=== PATIENT | male | born 1955 | race African-American/Black ===

== ENCOUNTER 2019-12-01 19:25 | Inpatient (IN) ==
[2019-12-01 20:18] LABS: BASO# 0.08 X1000 (0.0-0.2); BASO% 1.1 % (0.0-0.8); EOS# 0.06 X1000 (0.0-0.7); EOS% 0.8 % (0.0-10.0); HEMATOCRIT 25.6 % (42.0-52.0); HEMOGLOBIN 6.9 g/dL (14.0-18.0); IMM GRAN# 0.01 X1000 (0.0-0.04); IMM GRAN% 0.1 % (0.0-0.5); LYMPH# 0.77 X1000 (1.2-3.4); LYMPH% 10.3 % (20.5-51.1); MCH 16.4 PG (27-31); MONO# 0.64 X1000 (0.11-0.59); MONO% 8.5 % (1.7-9.3); NEUT# 5.95 X1000 (1.4-6.5); NEUT% 79.2 % (42.2-75.2); PLT 175 X1000 (130-400); RDW 22.5 % (11.5-14.5); WBC 7.51 X1000 (4.8-10.8)
[2019-12-01 20:29] LABS: INR 1.19; PROTIME 15.7 Seconds (11.0-16.0)
[2019-12-01 20:35] LABS: AGAP 12; ALBUMIN 3.2 g/dL (3.5-5.0); ALKALINE PHOSPHATASE 85 U/L (32-122); BUN 18 mg/dL (8-22); CALCIUM 8.2 mg/dL (8.8-10.2); CHLORIDE 109 mmol/L (98-107); CK PROFILE 87 U/L (24-204); COSMO 284; CREATININE 0.9 mg/dL (0.7-1.2); ESTIMATED GFR > 60; GLUCOSE 112 mg/dL (70-104); GOT 49 U/L (10-34); GPT 22 U/L (10-44); POTASSIUM 4.5 mmol/L (3.5-5.1); SODIUM 141 mmol/L (136-145); TCO2 20 mmol/L (25-35); TOTAL PROTEIN 5.7 g/dL (6.3-8.3)
--- NOTE | 2019-12-01 21:04 | Diag Imaging Result Doc PS360 ---
EXAM: CHEST-2 VIEWS 12/01/2019 HISTORY: sob TECHNIQUE: Two views the chest COMMENT: There are bilateral pleural effusions more so on the right than the left. There are patchy basilar opacities most likely due to atelectasis but the possibility of pneumonia particularly in the right lower and middle lobes cannot be excluded. The heart size is also enlarged. There are no previous studies. IMPRESSION: Cardiomegaly. Pleural effusions. Atelectasis versus pneumonia particularly in the right base. Electronically signed by Rc Tony 12/01/2019 9:02 PM
[2019-12-01] MEDS ORDERED: LASIX IV ONE (21:21)
[2019-12-01] MEDS: ZOSYN 3.375 GM in NS 50 ML IV SCH (21:43)
--- NOTE | 2019-12-01 21:43 | PROVIDER DOCUMENTATION ---
This chart was entered by She Lopez Scribe, acting as scribe for Duncan Isbell CRNP. HPI-Respiratory General - General Chief Complaint: Shortness of Breath Stated Complaint: SOB Time Seen by Provider: 12/01/19 19:53 - History of Present Illness-Resp Nature of Presenting Problem: 64 yom c/o increased sob over last week. in 2018, was dx w/chf and pulmonary HTN. est EF was 55-60% at that time. per Dr. Mcarthur, pt was to come to er to be admitted for poss CHF exacerbation. pt also c/o increased edema in left arm, bilat LE and scrotum. 3L NC at home. pt is speaking well. pt reports vascular studies done on L arm and were negative. no signs of DVT were found. Onset/Duration: reports: other Timing: reports: still present Review of Systems - Adult - REVIEW OF SYSTEMS - ADULT Constitutional: reports: no symptoms reported. denies: fever, fatique, night sweats Eyes: reports: no symptoms reported Ears, Nose, Mouth & Throat: reports: no symptoms reported Cardiovascular: reports: see HPI, edema, other (HTN). denies: heart murmur, irregular heart rate, orthopnea Respiratory: reports: see HPI, dyspnea on exertion, shortness of breath. denies: cough, hemoptysis, pleurisy Gastrointestinal: reports: no symptoms reported Genitourinary: reports: no symptoms reported Musculoskeletal: reports: see HPI, muscle weakness (generalized). denies: bone pain, back pain, muscle aches Integumentary: reports: no symptoms reported Neurological: reports: no symptoms reported Psychiatric: reports: no symptoms reported Endocrine: reports: no symptoms reported Hematologic/Lymphatic: reports: no symptoms reported Allergic/Immunologic: reports: no symptoms reported All Other Systems: Reviewed and Negative Past History - Adult - PAST MEDICAL HISTORY-ADULT Review of Records: reports: Nursing Assessment Review, Medications Reviewed, Social history reviewed & non-contributory. Major Childhood Illnesses: reports: denies history Cardiovascular: reports: CHF, HTN (pulmonary) Respiratory: reports: lung disease Gastrointestinal: reports: denies history Obstetrical/Gynecological: reports: denies history Genitourinary: reports: denies history Musculoskeletal: reports: denies history Neurological: reports: denies history Endocrine/Immune: reports: denies history Other Conditions: reports: denies history - PRIOR SURGERIES/PROCEDURES Surgical/Procedure History: reports: other - IMMUNIZATION STATUS Childhood Immunizations: See Nurse Assessment Flu Vaccine: See Nurse Assessment - FAMILY HISTORY Family History: reviewed, not pertinent Physical Exam-General - PHYSICAL EXAM-ADULT Initial Vital Signs Reviewed: Yes - CONSTITUTIONAL General Appearance: appears well, alert, no apparent distress. negative: lethargic, slow to respond, obtunded - EYES Eyes: PERRL/EOMI - HEAD, EARS, NOSE, MOUTH & THROAT HENMT: normocephalic/atraumatic, moist mucous membranes, normal ENT inspection - NECK Neck: non-tender, full range of motion, supple, normal inspection - RESPIRATORY Respiratory: chest non-tender, lungs clear, no pleuratic chest pain, no accessory muscle use, decreased breath sounds. negative: no respiratory distress (dyspnea on exertion), respiratory distress, accessory muscle use, wheezing - CARDIOVASCULAR Cardiovascular: normal peripheral pulses, regular rate, rhythm, no gallop, no JVD, no murmur, other (generalized edema noted with more in the LUE. (patient states has been evaluated for DVT and was negative.)). negative: no edema, friction rub, irregularly irregular, PMI displaced laterally - GASTROINTESTINAL (ABDOMEN) Abdominal Exam: normal bowel sounds, non tender, soft - MUSCULOSKELETAL Back Exam: normal inspection Extremity: normal range of motion, non-tender, normal inspection Peripheral Pulses: dorsalis-pedis (R): 2+, dorsalis-pedis (L): 2+ - SKIN Integumentary: normal color, warm/dry. 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, grossly normal, no motor/sensory deficits - PSYCHIATRIC Psych/Mental Status: normal mood/affect, normal thought content, normal thought process, oriented x 3 - HEART Score HEART Score: History: Slightly Suspicious HEART Score: ECG: Normal HEART Score: Age: 45-65 Years HEART Score: Risk Factors for Atherosclerotic Disease: > or = 3 Risk Factors or History of Atherosclerotic Disease HEART Score: Troponin: < or = Normal Limit Total HEART Score:: 3 Progress - PLAN OF CARE/RESULTS Progress/Plan/Lab Results: Vital Signs - 8 hr 12/01/19 19:33 12/01/19 21:15 Temperature 97.6 F Pulse Rate 73 69 Respiratory Rate 22 18 Blood Pressure 176/105 180/108 O2 Sat by Pulse Oximetry 100 100 Laboratory Results - last 24 hr 12/01/19 12/01/19 12/01/19 20:04 20:04 20:04 WBC RBC Hgb Hct MCV MCH MCHC RDW Std Deviation Plt Count MPV Immature Gran % (Auto) Neut % (Auto) Lymph % (Auto) Dundy % (Auto) Eos % (Auto) Baso % (Auto) Immature Gran # (Auto) Neut # (Auto) Lymph # (Auto) Dundy # (Auto) Eos # (Auto) Baso # (Auto) Segmented Neutrophils PT INR PTT (Actin FS) Sodium 141 Potassium 4.5 Chloride 109 H Carbon Dioxide 20 L Anion Gap 12 BUN 18 Creatinine 0.9 Estimated GFR/1.73 m2 > 60 BUN/Creatinine Ratio 20 Glucose 112 H Calculated Osmolality 284 Calcium 8.2 L Total Bilirubin 0.60 AST 49 H ALT 22 Alkaline Phosphatase 85 Creatine Kinase 87 Troponin T High Sens [id number]-Cevshxitlqn Pept > 77662 H Total Protein 5.7 L Albumin 3.2 L Globulin 3.0 Albumin/Globulin Ratio 1.0 Plasma Lactate 1.6 12/01/19 12/01/19 12/01/19 20:04 20:04 20:04 WBC 7.51 RBC 4.20 L Hgb 6.9 L Hct 25.6 L MCV 61.0 L MCH 16.4 L MCHC 27.0 L RDW Std Deviation 22.5 H Plt Count 175 MPV Not Reportable Immature Gran % (Auto) 0.1 Neut % (Auto) 79.2 H Lymph % (Auto) 10.3 L Dundy % (Auto) 8.5 Eos % (Auto) 0.8 Baso % (Auto) 1.1 H Immature Gran # (Auto) 0.01 Neut # (Auto) 5.95 Lymph # (Auto) 0.77 L Dundy # (Auto) 0.64 H Eos # (Auto) 0.06 Baso # (Auto) 0.08 Segmented Neutrophils Not Reportable PT 15.7 INR 1.19 PTT (Actin FS) 25.0 Sodium Potassium Chloride Carbon Dioxide Anion Gap BUN Creatinine Estimated GFR/1.73 m2 BUN/Creatinine Ratio Glucose Calculated Osmolality Calcium Total Bilirubin AST ALT Alkaline Phosphatase Creatine Kinase Troponin T High Sens 48 H Zix-I-Yevudgkffag Pept Total Protein Albumin Globulin Albumin/Globulin Ratio Plasma Lactate Orders Category Date Time Status Admit - [facility] Routine AdmDCTranf 12/01/19 21:18 Active Activity - Bed Rest with BRP ORDERED Care 12/01/19 21:18 Active Cardiac Monitoring DIRECTED Care 12/01/19 19:54 Active NEWS Score 2-4:Order NEWS Lactate Series NOW Care 12/01/19 19:37 Active Oxygen Therapy- ED Nursing DIRECTED Care 12/01/19 19:54 Active Saline Loc NOW Care 12/01/19 19:54 Active Vital Signs Order ROUTINE Care 12/01/19 21:18 Active Z-Document. for Tele Applied ORDERED Care 12/01/19 21:19 Active Heart Healthy Diet Diet 12/01/19 21:20 Active CHEST-2 VIEWS [RAD] Stat Exams 12/01/19 19:54 Completed CBC WITH ELECTRONIC DIFF [HEME] Stat Lab 12/01/19 20:04 Completed CK PROFILE [SP CHEM] Stat Lab 12/01/19 20:04 Completed COMPREHENSIVE METABOLIC PANEL [CHEM] Stat Lab 12/01/19 20:04 Completed LACTATE, PLASMA [CHEM] Lab 12/01/19 22:45 Uncollected LACTATE, PLASMA [CHEM] Lab 12/02/19 01:45 Uncollected LACTATE, PLASMA [CHEM] Q3H Lab 12/01/19 20:04 Completed PRO B-NATRIURETIC PEPTIDE Stat Lab 12/01/19 20:04 Completed PROTIME WITH INR [COAG] Stat Lab 12/01/19 20:04 Completed PTT [COAG] Stat Lab 12/01/19 20:04 Completed TROPONIN T HIGH SENSITIVITY Stat Lab 12/01/19 20:04 Completed Albuterol 2.5MG/Ipratrop 0.5MG [Duoneb (A & A)] Med 12/01/19 23:30 Active 3 ml INH RTQ4H Azithromycin 500 mg/Ns [Zithromax 500 mg/Ns] Med 12/01/19 22:00 Active 500 mg in 250 ml IV Q24H Furosemide [Lasix] Med 12/01/19 21:21 Discontinued 40 mg IV NOW ONE Piperacillin/Tazobactam [Zosyn] 3.375 gm Med 12/01/19 21:30 Active 0.9% Sodium Chloride Inj [Ns] 50 ml IV Q6H Aerosol Treatments Routine Oth 12/01/19 21:20 Active Aerosol Treatments Stat Oth 12/01/19 21:20 Active CP/SOB/Palp >45 yrs of Age Stat Oth 12/01/19 19:54 Ordered Oxygen Device Routine Oth 12/01/19 21:20 Active Telemetry [OM.EQ] Routine Oth 12/01/19 21:18 Active EKG [EKG] Stat Ther 12/01/19 19:54 Ordered Transfer/Admit Order [TRANSFER] Routine Transfer 12/01/19 21:21 Ordered patient to be admitted to the hospital for CHF exacerbation and RLL pneumonia Result Diagrams: 12/01/19 20:04 12/01/19 20:04 - EKG 1 Time of EKG reading by physician:: 20:04 EKG Read and Signed by:: Cornelius Llamas EKG Interpretation (*Must complete 3 of following elements*): Abnormal Rate: 67 Rhythm: NSR [place]: normal QRS: normal [place] Interval: normal ST Wave: non-specific ST changes (ST & T wave abnormalty, consider inferior ischemia) Comments: possible anterior infarct, age undetermined - XRAY 1 XRAY Study: Chest Impression: See EMR Report ( COMMENT: There are bilateral pleural effusions more so on the right than the left. There are patchy basilar opacities most likely due to atelectasis but the possibility of pneumonia particularly in the right lower and middle lobes cannot be excluded. The heart size is also enlarged. There are no previous studies. IMPRESSION: Cardiomegaly. Pleural effusions. Atelectasis versus pneumonia particularly in the right base.) - CONSULTS/PCP/HOSPITALIST Notification #1 *Consult/PCP/Hospitalist*: Dr Finnegan Time Discussed: 21:26 Reason/Comments: SOB, CHF exacerbation, Pneumonia Consult Disposition: Admit Departure - Departure Date of Disposition Decision: 12/01/19 Time of Disposition Decision: 21:43 DIAGNOSIS: Acute exacerbation of CHF (congestive heart failure) Qualifiers: Heart failure type: unspecified Qualified Code(s): I50.9 - Heart failure, unspecified Dyspnea Qualifiers: Dyspnea type: unspecified Qualified Code(s): R06.00 - Dyspnea, unspecified RLL pneumonia Qualifiers: Pneumonia type: due to unspecified organism Qualified Code(s): J18.1 - Lobar pneumonia, unspecified organism Disposition: ADMITTED INPATIENT 09 Certified Medical Emergency: Emergent Condition: Stable Additional Instructions: ED Follow Up Instructions: You have been treated by a care provider in the Emergency Department. These instructions are being provided to you so you can have an understanding of how to care for yourself upon discharge. Upon discharge from the Emergency Department, you are responsible for making arrangements for follow-up care by a physician of your choice. Take all prescribed medications as directed. Return to the Emergency Department immediately for any new or worsening symptoms. You may call the Physician Referral phone number at [phone] to obtain a list of Physicians who are taking new patients. Referrals and Follow-Ups: Bird Douglas MD [Primary Care Provider] - - Critical Care Note This patient required my direct & personal management of CC.: No Attestation - Physician/ JOSELYN Attestation Patient care was provided by Advanced Practice Provider:: Yes Advanced Practice Provider:: Duncan Isbell Advanced Practice Provider documentation review:: The Mid-level provider documentation, treatment plan and medical decision making was reviewed by the physician who agrees with all treatment and medical decision making by the MLP. The physician spent face to face time with patient:: No Advanced Practice Provider documentation review:: Supervising physician onsite and consulted in the evaluation and care of this patient. The physician did not have a face to face encounter with the patient. This chart was documented by the indicated scribe, (She Lopez Scribe) and accurately reflects the services I performed and decisions made by me, Duncan Isbell CRNP, as attested by the provider's signature.
[2019-12-01] MEDS ORDERED: LOPRESSOR IV ONE (22:37)
[2019-12-01] MEDS ORDERED: CATAPRES PO ONE (22:37)
[2019-12-01] MEDS: ZITHROMAX 500 MG/NS 500 MG/250 ML IVPB IV SCH (22:53)
[2019-12-01] MEDS: DUONEB (A & A) INH SCH (23:19)
--- NOTE | 2019-12-02 01:01 | EKG Report ---
Test Performed on : 12/01/2019 8:03:12 PM Test Reason : sob Blood Pressure : / mmHG Vent. Rate : 067 BPM Atrial Rate : 067 BPM P-R Int : 142 ms QRS Dur : 074 ms QT Int : 392 ms P-R-T Axes : 013 048 -28 degrees QTc Int : 414 ms Normal sinus rhythm. Possible Anterior infarct , age undetermined ST & T wave abnormality, consider inferior ischemia Abnormal ECG No previous ECGs available Unconfirmed Result
[2019-12-02] MEDS: DUONEB (A & A) INH SCH ×5 (03:14→19:45)
[2019-12-02 04:09] LABS: AGAP 11; ALBUMIN 3.2 g/dL (3.5-5.0); ALKALINE PHOSPHATASE 85 U/L (32-122); BUN 18 mg/dL (8-22); CALCIUM 8.1 mg/dL (8.8-10.2); CHLORIDE 109 mmol/L (98-107); COSMO 288; CREATININE 0.9 mg/dL (0.7-1.2); ESTIMATED GFR > 60; GLUCOSE 157 mg/dL (70-104); GOT 23 U/L (10-34); GPT 19 U/L (10-44); POTASSIUM 3.6 mmol/L (3.5-5.1); SODIUM 142 mmol/L (136-145); TCO2 23 mmol/L (25-35); TOTAL PROTEIN 5.8 g/dL (6.3-8.3)
[2019-12-02 04:17] LABS: BASO# 0.09 X1000 (0.0-0.2); BASO% 1.4 % (0.0-0.8); EOS# 0.06 X1000 (0.0-0.7); HEMATOCRIT 24.8 % (42.0-52.0); HEMOGLOBIN 6.5 g/dL (14.0-18.0); IMM GRAN# 0.01 X1000 (0.0-0.04); IMM GRAN% 0.2 % (0.0-0.5); LYMPH% 9.6 % (20.5-51.1); MCH 16.2 PG (27-31); MCHC 26.2 g/dL (33-37); MCV 61.7 FL (81-99); MONO# 0.73 X1000 (0.11-0.59); MONO% 11.7 % (1.7-9.3); NEUT# 4.73 X1000 (1.4-6.5); NEUT% 76.1 % (42.2-75.2); PLT 183 X1000 (130-400); RBC 4.02 XMIL (4.7-6.1); RDW 22.5 % (11.5-14.5); WBC 6.22 X1000 (4.8-10.8)
[2019-12-02] MEDS: ZOSYN 3.375 GM in NS 50 ML IV SCH ×3 (05:47→23:05)
[2019-12-02] MEDS ORDERED: NORCO-5 PO PRN (07:58)
[2019-12-02] MEDS ORDERED: LONITEN PO PRN (07:58)
[2019-12-02] MEDS ORDERED: NS 500 ML IV ONE ×2 (07:58→14:50)
--- NOTE | 2019-12-02 08:03 | Diag Imaging Result Doc PS360 ---
EXAM: CHEST-2 VIEWS 12/02/2019 HISTORY: SOB TECHNIQUE: PA and lateral chest COMMENT: There is blunting of the left costophrenic angle and there is a large pleural effusion on the right. There is compressive atelectasis versus pneumonia in the right middle and lower lobes. There is some atelectasis versus fibrosis in the lingula which has not changed since 12/01/2019. There are no earlier radiographs available for comparison. IMPRESSION: Cardiomegaly and bilateral pleural effusions worse on the right than the left. Atelectasis versus pneumonia. Electronically signed by Rc Tony 12/02/2019 8:00 AM
[2019-12-02] MEDS: ULTRAM PO SCH (10:04)
[2019-12-02] MEDS: LASIX IV SCH ×2 (10:06→23:06)
[2019-12-02] MEDS ORDERED: LASIX PO PRN (18:49)
[2019-12-02] MEDS: CATAPRES PO SCH ×2 (19:22→21:21)
--- NOTE | 2019-12-02 20:41 | ECHO REPORT ---
ORDER DATE: 12/02/2019 MEASUREMENTS: Septal thickness 1.4, left ventricular internal end-diastole 5.5, posterior wall thickness 1.4, aortic root 3.5, left atrium 5.1. SUMMARY: 1. Adequate quality study. 2. Aortic valve is trileaflet and opens normally on 2-dimensional images. Peak gradient across aortic valve by Doppler is less than 10 mmHg. There is trace aortic regurgitation. Mitral, tricuspid, and pulmonic valves are without evidence of structural abnormality with very mild mitral regurgitation, mild tricuspid regurgitation, and moderate pulmonic insufficiency. The estimated systolic PA pressure by Doppler is 55 to 60 mmHg suggesting moderate pulmonary hypertension. Aortic root is normal in size. 3. Upper normal left ventricular chamber size. Mild to moderate concentric left hypertrophy is demonstrated. The estimated left ventricular ejection fraction is approximately 25% in the setting of global hypokinesis. Doppler suggests grade 1 left ventricular diastolic function. Left atrium is moderately enlarged. The right atrium is moderately enlarged. The right ventricle is mildly enlarged with mildly reduced right ventricular systolic function. 4. No pericardial effusion. 5. Bilateral pleural effusions evident. 6. Appearance of inferior vena cava suggests elevated central venous pressure. cc: MD Lennox Jaramillo MD
[2019-12-02] MEDS ORDERED: NORCO-7.5 PO PRN (22:50)
--- NOTE | 2019-12-02 22:51 | HISTORY AND PHYSICAL ---
ADDENDUM: The patient is a 64-year-old male who is on disability. States he has a history of pulmonary hypertension with his recent EF being 55 to 60 percent. Currently, he is anemic with an H and H at 6 and 25. We are going to admit to the hospital, check ultrasound of his heart, type and cross to transfuse. Continue Lasix. Restart his home blood pressure medicine and will follow. cc: Lennox Finnegan MD
[2019-12-02] MEDS: ZITHROMAX 500 MG/NS 500 MG/250 ML IVPB IV SCH (23:08)
[2019-12-03] MEDS: ZOSYN 3.375 GM in NS 50 ML IV SCH ×5 (00:07→23:07)
[2019-12-03] MEDS: DUONEB (A & A) INH SCH ×7 (00:09→23:12)
[2019-12-03] MEDS: TENORMIN PO SCH ×2 (00:35→08:02)
[2019-12-03] MEDS: FERROUS SULFATE PO SCH ×2 (00:35→08:02)
[2019-12-03 07:28] LABS: HEMATOCRIT 30.5 % (42.0-52.0); HEMOGLOBIN 8.5 g/dL (14.0-18.0); MCH 17.3 PG (27-31); MCHC 27.9 g/dL (33-37); MCV 62.2 FL (81-99); PLT 180 X1000 (130-400); RDW 26.1 % (11.5-14.5); WBC 11.86 X1000 (4.8-10.8)
[2019-12-03 07:32] LABS: AGAP 14; ALBUMIN 3.4 g/dL (3.5-5.0); ALKALINE PHOSPHATASE 82 U/L (32-122); BUN 18 mg/dL (8-22); CALCIUM 8.4 mg/dL (8.8-10.2); CHLORIDE 104 mmol/L (98-107); COSMO 291; CREATININE 0.8 mg/dL (0.7-1.2); ESTIMATED GFR > 60; GLUCOSE 98 mg/dL (70-104); GOT 31 U/L (10-34); GPT 22 U/L (10-44); MAGNESIUM 1.6 mg/dL (1.5-2.7); POTASSIUM 3.2 mmol/L (3.5-5.1); SODIUM 145 mmol/L (136-145); TCO2 27 mmol/L (25-35); TOTAL PROTEIN 6.3 g/dL (6.3-8.3)
[2019-12-03] MEDS: LASIX IV SCH ×2 (08:01→23:07)
[2019-12-03] MEDS: ULTRAM PO SCH (08:02)
[2019-12-03] MEDS: CATAPRES PO SCH (08:02)
[2019-12-03] MEDS ORDERED: HYDROCHLOROTHIAZIDE PO SCH (09:00)
--- NOTE | 2019-12-03 09:01 | Diag Imaging Result Doc PS360 ---
EXAM: CHEST-2 VIEWS - 12/03/2019 HISTORY: hypoxia TECHNIQUE: Chest two views COMPARISON: 12/02/2019 FINDINGS: There is a medium right pleural effusion which appears to have decreased mildly. Underlying airspace disease on the right is not excluded. There is stable small right pleural effusion. There are no other interval changes identified. There is no evidence of pneumothorax. IMPRESSION: Medium right pleural effusion, which appears to have decreased mildly. Stable small left pleural effusion. Electronically signed by Ricco Biswas 12/03/2019 8:59 AM
[2019-12-03] MEDS: PERCOCET-5 PO PRN ×2 (09:14→17:09)
[2019-12-03] MEDS: COREG PO SCH ×2 (13:43→23:06)
[2019-12-03] MEDS ORDERED: CATAPRES PO SCH (21:00)
[2019-12-03] MEDS ORDERED: PRINIVIL PO SCH (21:00)
--- NOTE | 2019-12-03 22:09 | PROGRESS NOTE ---
DATE: 12/03/2019 SUBJECTIVE: The patient himself has no new complaints, although states he would like to take Viagra every day. Denies any shortness of breath, chest pain, palpitations currently. PHYSICAL EXAMINATION: Vital signs: Temperature 97.8, pulse 84, respiratory rate 18, BP 157/91. General: Patient is awake, pleasant sitting up on side of the bed with his feet hanging over the edge. Still has marked edema in his lower extremities, nonpitting. HEENT: Normocephalic. Neck: Supple. Cardiovascular: Regular rate. Chest: Decreased but equal. Abdomen: Soft. Extremities: Moves all extremities with significant edema bilaterally. ASSESSMENT: 1. Moderate pulmonary hypertension. 2. Congestive heart failure with an EF of 25%. PLAN: We are going to continue patient in the hospital. We have consulted with Cardiology we are going to add ARB as patient notes that KAREN inhibitors upset his stomach. We are going to add Coreg and hopefully Aldactone to his blood pressures. We will control it. We will follow his anemia. Further orders as needed. cc: Lennox Finnegan MD
[2019-12-03] MEDS: COZAAR PO SCH (23:06)
[2019-12-03] MEDS: ZITHROMAX 500 MG/NS 500 MG/250 ML IVPB IV SCH (23:31)
[2019-12-04] MEDS: PERCOCET-5 PO PRN ×2 (01:49→09:56)
[2019-12-04] MEDS: DUONEB (A & A) INH SCH ×3 (03:05→12:22)
[2019-12-04] MEDS: ZOSYN 3.375 GM in NS 50 ML IV SCH (04:55)
[2019-12-04 05:19] VITALS: BP 149/93
[2019-12-04 08:16] LABS: HEMATOCRIT 31.9 % (42.0-52.0); RBC 5.12 XMIL (4.7-6.1); WBC 12.98 X1000 (4.8-10.8)
[2019-12-04 08:17] LABS: AGAP 11; ALBUMIN 3.7 g/dL (3.5-5.0); ALKALINE PHOSPHATASE 81 U/L (32-122); BUN 15 mg/dL (8-22); CALCIUM 8.9 mg/dL (8.8-10.2); CHLORIDE 99 mmol/L (98-107); COSMO 286; CREATININE 0.9 mg/dL (0.7-1.2); ESTIMATED GFR > 60; GLUCOSE 96 mg/dL (70-104); GOT 33 U/L (10-34); GPT 25 U/L (10-44); MAGNESIUM 1.5 mg/dL (1.5-2.7); MCH 17.6 PG (27-31); MCHC 28.2 g/dL (33-37); MCV 62.3 FL (81-99); PLT 208 X1000 (130-400); POTASSIUM 3.1 mmol/L (3.5-5.1); RDW 26.7 % (11.5-14.5); SODIUM 143 mmol/L (136-145); TCO2 33 mmol/L (25-35)
[2019-12-04] MEDS ORDERED: KLOR-CON PO ONE (08:39)
[2019-12-04] MEDS ORDERED: KEFLEX PO SCH (09:00)
[2019-12-04] MEDS ORDERED: COREG PO SCH (09:00)
[2019-12-04] MEDS ORDERED: ALDACTONE PO SCH (09:00)
[2019-12-04] MEDS: ULTRAM PO SCH (09:55)
[2019-12-04] MEDS: FERROUS SULFATE PO SCH (09:58)
[2019-12-04] MEDS: LASIX PO SCH ×2 (09:58→10:02)
[2019-12-04] MEDS: COZAAR PO SCH (09:58)
--- NOTE | 2019-12-04 13:19 | HISTORY AND PHYSICAL ---
This is a delayed dictation for 12/02/2019. The patient was actually seen and evaluated at this time. CHIEF COMPLAINT: Shortness of breath and body edema. HISTORY OF PRESENT ILLNESS: This is a 64-year-old gentleman with a history of hypertension, congestive heart failure, BPH, pulmonary hypertension, who presents to the emergency room complaining of increasing shortness of breath, dyspnea on exertion and increasing lower extremity edema that over the past 2 to 3 weeks has increased despite his home medications and O2 at 3 L at home. He voices compliance with his medication and diet regimen. He denied any fevers, any chills, a productive cough, any palpitations, any PND or orthopnea. PAST MEDICAL HISTORY: 1. Hypertension. 2. Pulmonary hypertension. 3. Congestive heart failure. 4. Ulcerative colitis. PAST SURGICAL HISTORY: Hemicolectomy, hernia repair, appendectomy. SOCIAL HISTORY: He denies any tobacco use, vaping, illicit drug use. He does drink beers occasionally. He lives with his mother. He is disabled. ALLERGIES: No known drug allergies. HOME MEDICATIONS: 1. Atenolol 50 mg p.o. daily. 2. Clonidine 0.2 mg p.o. b.i.d. 3. Furosemide 20 mg p.o. daily p.r.n. 4. Tramadol 50 mg p.o. daily. FAMILY HISTORY: Positive for hypertension and coronary artery disease. REVIEW OF SYSTEMS: Discussed with patient with pertinent positives stated in the HPI. He denied any syncope or dizziness, any chest pain or palpitations, any fevers or chills, a productive cough, any PND, orthopnea, any nausea, vomiting, diarrhea, constipation, black or bloody vomitus or stools, hematuria, dysuria, frequency, urgency. PHYSICAL EXAMINATION: GENERAL: This is a 64-year-old gentleman who is sitting up on the bed in no distress. VITAL SIGNS: Blood pressure is 139/79, with a heart rate of 71, respirations are 20, temperature is 97.8 degrees oral, with room air saturations 100% on 3 L nasal cannula. EYES: Pupils are equal, round, react to light. EOMs are intact. Sclerae are anicteric. HEENT: Head is normocephalic, atraumatic. Mucous membranes are moist. NECK: Supple with trachea midline. CARDIOVASCULAR: Regular rate and rhythm. S1 and S2 appreciated. No murmur. He has edema to all 4 extremities as well as scrotal edema. He denies any calf tenderness with peripheral pulses palpable x4 extremities. No murmur noted. PULMONARY: Breath sounds are diminished throughout with expiratory wheezes. He has a few bibasilar crackles on posterior. CHEST: Rises and falls symmetric with respiration. He does have some slight increased work of breathing noted. GASTROINTESTINAL: Abdomen is soft, nontender, nondistended. Bowel sounds in all 4 quadrants. GENITOURINARY: He is noted to have penile and scrotal edema. SKIN: Warm and dry. NEUROLOGIC: He is alert and oriented x3. LABORATORY DATA: WBC is 7.5 with hemoglobin 6.9, hematocrit 25.6, and platelets of 175,000. Sodium 141, potassium 4.5, BUN 18, creatinine 0.9 with a glucose of 112. ProBNP is greater than 35,000. Chest x-ray revealed cardiomegaly with pleural effusions, atelectasis versus pneumonia in the right. On 12/02/2019 chest x-ray revealed cardiomegaly with bilateral pleural effusions, right greater than left atelectasis versus pneumonia. On 12/03/2019 chest x-ray revealed a medium right pleural effusion which appears to have decreased mildly with a stable small left pleural effusion. Echocardiogram revealed mild to moderate concentric left hypertrophy with estimated left ventricular ejection fraction 25% in the setting of global hypokinesis and grade 1 ventricular diastolic dysfunction. Estimated systolic PA pressure is 55 to 60, suggesting moderate pulmonary hypertension. ASSESSMENT; 1. Moderate pulmonary hypertension. 2. Congestive heart failure with ejection fraction of 25%. 3. Right pleural effusion. 4. Past benign prostatic hypertrophy (BPH). 5. Chronic anemia secondary to ulcerative colitis. PLAN: Continue diuresis IV Lasix Strict I&O ECHO Identify home medications and continue as appropriate. CXR in am Discuss with cardiology. Mr Pedroza repeatedly requests Viagra or Cialis for pulm HTN during my interview. I did discuss with him that is a decision to be made by cardiology. He voiced understanding Dictated by LINH Bob for Lennox Finnegan MD cc: LINH Bob MD Moses Awoniyi, MD MTDD
--- NOTE | 2019-12-04 22:12 | DISCHARGE SUMMARY ---
ADMISSION DATE: 12/01/2019 DISCHARGE DATE: 12/04/2019 DIAGNOSES: 1. Moderate pulmonary hypertension. 2. Congestive heart failure with ejection fraction of 25%. 3. Right pleural effusion. 4. Past benign prostatic hypertrophy (BPH). 5. Chronic anemia secondary to ulcerative colitis. DIAGNOSTICS: 1. Chest x-ray revealed cardiomegaly with pleural effusions, atelectasis versus pneumonia on the right. 2. 12/02/2019 chest x-ray, cardiomegaly and bilateral pleural effusions with right greater than left. 3. 12/03/2019 chest x-ray revealed medium right pleural effusion which appears to have decreased with small left pleural effusion. 4. Echocardiogram revealed pulmonary hypertension with systolic PA pressure of 55 to 60 mmHg, global hypokinesis with an ejection fraction of 25% with grade 1 left ventricular diastolic dysfunction. DISCHARGE VITAL SIGNS: Blood pressure is 149/90 with heart rate of 80, respirations 20, temperature 97.8 degrees with O2 saturation 98 to 100% on 3 L nasal cannula. PHYSICAL EXAMINATION: General: This is a 64-year-old gentleman sitting on the side of the bed in no distress. Eyes: Pupils equal, round, react to light. EOMs are intact. Sclerae are anicteric. HEENT: Head is normocephalic, atraumatic. Mucous membranes are moist. Neck: Supple, trachea midline. Cardiovascular: Regular rate and rhythm, S1 and S2 appreciated. No murmur. He has edema to all 4 extremities, as well as scrotal edema which is greatly improved. He denies any calf tenderness. Pulmonary: Breath sounds are diminished throughout but clear. Chest rises and falls with symmetric respiration. No increased work of breathing noted. Gastrointestinal: Abdomen is soft, nontender, nondistended with bowel sounds in all 4 quadrants. Genitourinary: He continues with some scrotal and penile edema, which is greatly improved since admission. Neurologic: He is alert and oriented x3. Skin: Warm and dry. DISCHARGE MEDICATIONS: 1. Coreg 6.25 mg p.o. q.12 hours. 2. Keflex 500 mg p.o. t.i.d. 3. Ferrous sulfate 325 p.o. daily. 4. Lasix 40 mg p.o. b.i.d. 5. Losartan 50 mg p.o. b.i.d. 6. Percocet 5 mg 1 q.6 hours p.r.n. 7. Aldactone 12.5 mg p.o. daily. HOSPITAL COURSE: Mr. Pedroza presented to the emergency room complaining of shortness of breath over the prior week despite his home medications and using his 3 L nasal cannula. He did state that he has had some increase in his extremity edema also. He was diuresed for a negative cumulative total of 8870 mL, to which he reports feeling much better. I reviewed the patients history with dr Ribeiro, who reviewed his diagnostics and medications. Dr Ribeiro adjusted his home medications for a heart failure regimen and recommended the pt follow up with cardiology in 1-2 weeks after discharge. Medication changes were reviewed with Mr Pedroza who voiced understanding. Follow UP: Dr Azar Ribeiro, he was instructed to call the office to schedule an appointment in the next 1-[address] Douglas - call Saturday to schedule an appointment in the next 1-2 weeks He was instructed to return to the ER forn increasing dyspnea, orthopnea, temp>[id number]. Chest pain, nausea, vomiting, diarrhea, black or bloody stool. Or for questions or concerns he may have. Dictated by LINH Bob for Lennox Finnegan MD cc: LINH Bob MD [facility]
--- NOTE | 2019-12-05 02:50 | DISCHARGE SUMMARY ---
ADMISSION DATE: 12/01/2019 DISCHARGE DATE: 12/04/2019 ADDENDUM: Patient seen and examined by myself. Full note dictated and discussed with nurse practitioner. On discharge patient has moderate pulmonary hypertension with an ejection fraction of 25%. He was started on beta-blockers, losartan, Lasix and Aldactone. Will be discharged home. He will follow up outpatient with Cardiology. cc: Lennox Finnegan MD
== END 2019-12-04 10:23 | disposition home or self-care (01) | DRG 292 ==
LOC: P.ED 19:25 → P.MEDSURG 21:45
PROVIDERS: ATTEND Family Medicine